=== PATIENT | male | born 1990 | race Caucasian/White ===

== ENCOUNTER 2023-01-02 10:23 | Emergency (ER) | payer OTHER ==
[~2023-01-02] VITALS: Ht 182.9 cm; Wt 82.5 kg
[2023-01-02] MEDS ORDERED: ACETAMINOPHEN 325 MG TAB PO ONE (12:25)
[2023-01-02 14:29] VITALS: BP 119/68
[2023-01-02] MEDS ORDERED: IBUP-1022 PO (14:29)
[2023-01-02] MEDS ORDERED: METH-1165 PO (14:29)
== END 2023-01-02 14:41 | disposition home or self-care (01) ==
LOC: M ED 10:23
DX: S39.012A Strain of muscle, fascia and tendon of lower back, initial encounter (principal); W19.XXXA Unspecified fall, initial encounter; Y92.89 Other specified places as the place of occurrence of the external cause; Y93.89 Activity, other specified; Y99.8 Other external cause status